=== PATIENT | female | born 1960 | race Caucasian/White ===

== ENCOUNTER 2019-09-29 07:15 | Day surgery (SDC) | payer BC ==
[2019-09-29 08:06] LABS: ABSOLUTE EOSINOPHILS # (AUTO) 0.2 10^3/uL (0.0-0.6); ABSOLUTE LYMPHOCYTES (AUTO) 1.7 10^3/uL (0.5-4.7); ABSOLUTE MONOCYTES (AUTO) 0.7 10^3/uL (0.1-1.4); ABSOLUTE NEUT (AUTO) 4.1 10^3/uL (1.7-8.2); BASOPHILS % (AUTO) 0.5 % (0-2); EOSINOPHILS % (AUTO) 3.3 % (0-6); HEMATOCRIT 41.2 % (36.0-47.0); HEMOGLOBIN 14.3 g/dL (12.0-15.5); LYMPHOCYTES % (AUTO) 24.9 % (13-45); MEAN CORPUSCULAR HEMOGLOBIN 28.6 pg (27.0-33.4); MEAN CORPUSCULAR HGB CONC 34.7 g/dL (32.0-36.0); MEAN CORPUSCULAR VOLUME 82 fl (80-97); MONOCYTES % (AUTO) 10.8 % (3-13); PLATELET COUNT 284 10^3/uL (150-450); RED CELL DISTRIBUTION WIDTH 13.5 % (11.5-14.0); SEGMENTED NEUTROPHILS % (AUTO) 60.5 % (42-78); TOTAL CELLS COUNTED % (AUTO) 100 %; WHITE BLOOD COUNT 6.9 10^3/uL (4.0-10.5)
[2019-09-29] MEDS ORDERED: FENTANYL CITRATE INJ/PF 100 MCG/2 ML AMPUL ONE (08:40)
[2019-09-29] MEDS ORDERED: MIDAZOLAM 2 MG/2 ML INJ ONE (08:40)
[2019-09-29] MEDS ORDERED: LIDOCAINE 2% INJ-PF (20 MG/ML) 10 ML AMPUL ONE (08:40)
[2019-09-29] MEDS ORDERED: PROPOFOL INJ 200 MG/20 ML VIAL IV ONE (08:41)
[2019-09-29] MEDS ORDERED: ONDANSETRON HCL INJ/PF 4 MG/2 ML SDV ONE (08:47)
[2019-09-29 09:07] LABS: APPEARANCE,URINE SLIGHTLY-CLOUDY; BILIRUBIN,URINE NEGATIVE (NEGATIVE); CALCIUM OXALATE CRYSTALS,URINE MANY /HPF; COLOR,URINE YELLOW; GLUCOSE, URINE NEGATIVE (NEGATIVE); KETONES,URINE NEGATIVE (NEGATIVE); LEUKOCYTE ESTERASE,URINE MODERATE (NEGATIVE); NITRITE,URINE NEGATIVE (NEGATIVE); PROTEIN,URINE 30 mg/dL (NEGATIVE); URINE SPECIFIC GRAVITY 1.027; UROBILINOGEN,URINE NEGATIVE mg/dL (<2.0)
[2019-09-29] MEDS ORDERED: KETOROLAC TROMETHAMINE INJ/PF 30 MG/1 ML SDV IV PRN (09:37)
[2019-09-29] MEDS ORDERED: IBUPROFEN 800 MG TABLET PO PRN (09:37)
[2019-09-29] MEDS ORDERED: RINGERS SOLUTION,LACTATED 1,000 ML IV PRN (09:37)
[2019-09-29] MEDS ORDERED: OXYCODONE-ACETAMINOPHEN 5-325 MG TABLET PO PRN ×4 (09:37→09:49)
--- NOTE | 2019-09-29 09:43 | Operative Report ---
Operative Report DATE OF SURGERY: 09/29/19 PREOPERATIVE DIAGNOSIS: Postmenopausal bleeding POSTOPERATIVE DIAGNOSIS: Same OPERATION: D&C hysteroscopy SURGEON: TAE CHARLES ANESTHESIA: LMAC TISSUE REMOVED OR ALTERED: Cervical and uterine contents COMPLICATIONS: None ESTIMATED BLOOD LOSS: 20 cc INTRAOPERATIVE FINDINGS: Bleeding tissue in the uterine cavity PROCEDURE: Patient was taken the OR and placed in supine position. Anesthesia was induced and she was placed in dorsolithotomy position. Her perineum and vagina were prepared and draped in sterile fashion. She had voided prior to the procedure and did not need catheterization. The speculum was placed in the vagina but because of the caliber of the vagina it would not open. Therefore 2 small retractors were used 1 superiorly and one inferiorly. The anterior lip cervix was grasped with a tenaculum. The cervix was noted to have bleeding from the office. The sound was to 7 cm 8 before and after the case. The cervix was gently dilated endocervical curettings were obtained. Hysteroscopy showed a bleeding mass in the superior portion of the uterine cavity. Sampling was done with curetting. All specimens were sent for pathology. At the end of the case all instruments were removed. She is brought out of anesthesia and taken recovery in stable condition.
[2019-09-29] MEDS ORDERED: FENTANYL CITRATE INJ/PF 100 MCG/2 ML AMPUL IV PRN ×3 (09:49)
[2019-09-29] MEDS ORDERED: MEPERIDINE HCL/PF INJ 25 MG/1 ML DISP.SYRIN IV PRN (09:49)
[2019-09-29] MEDS ORDERED: DIPHENHYDRAMINE HCL 50 MG/ML VIAL IV PRN (09:49)
[2019-09-29] MEDS ORDERED: PROMETHAZINE HCL INJ 25 MG/1 ML VIAL IV PRN ×2 (09:49)
[2019-09-29] MEDS ORDERED: MORPHINE SULFATE 10 MG/ML INJ IV PRN (09:49)
[2019-09-29] MEDS ORDERED: ACETAMINOPHEN 1,000 MG/100 ML RTUPB IV ONE ×2 (09:51→10:10)
[2019-09-29] MEDS ORDERED: IBUPROFEN 800 MG TABLET ONE (10:19)
--- NOTE | 2019-09-29 11:26 | EKG REPORT ---
SEVERITY:- NORMAL ECG - SINUS RHYTHM : Confirmed by: Jey Toro MD 29-Sep-2019 11:24:57
[2019-09-29 11:43] VITALS: BP 146/90
== END 2019-09-29 11:10 | disposition home or self-care (01) ==
LOC: OROUT 07:15
PROVIDERS: ATTEND Obstetrics & Gynecology
DX: C80.1 Malignant (primary) neoplasm, unspecified (principal); N95.0 Postmenopausal bleeding; I10 Essential (primary) hypertension; Z91.040 Latex allergy status
CPT/HCPCS: 36415; 85025; 81001; 88305 ×2; 93005; 93010; 58558; J2250; J3010; J2405; J2704; J3490; J0131; 952